=== PATIENT | male | born 1950 | race Caucasian/White ===

== ENCOUNTER 2020-08-28 10:02 | Outpatient (CLI) | payer MEDICARE ==
[~2020-08-28 10:02] MED LIST: Iopamidol 370 76% 100 ML VIAL ONE
== END 2020-08-28 10:03 | disposition home or self-care (01) ==
LOC: CT 10:02
PROVIDERS: ATTEND Urology
DX: C61 Malignant neoplasm of prostate (principal); J98.4 Other disorders of lung; N28.1 Cyst of kidney, acquired; M43.17 Spondylolisthesis, lumbosacral region; R93.7 Abnormal findings on diagnostic imaging of other parts of musculoskeletal system
CPT/HCPCS: 73610; 74178; 78306; 82565; A9503; Q9967

== ENCOUNTER 2020-12-28 10:55 | Outpatient (CLI) | payer MEDICARE | END 2020-12-28 10:56 | disposition home or self-care (01) | LOC: LABBT 10:55 | PROVIDERS: ATTEND Urology | DX: Z01.818 Encounter for other preprocedural examination (principal); C61 Malignant neoplasm of prostate; N40.1 Benign prostatic hyperplasia with lower urinary tract symptoms; N52.01 Erectile dysfunction due to arterial insufficiency; Z20.822 Contact with and (suspected) exposure to COVID-19 | CPT/HCPCS: 71046; 80048; 81001; 85027; 85610; 85730; 86850; 86900; 86901; 87086; 93005; U0003; U0005; 93010 ==

== ENCOUNTER 2020-12-31 05:43 | Inpatient (IN) | payer MEDICARE ==
[2020-12-28 12:06] LABS: Hemoglobin 15.6 g/dL (13.5-17.5); Mean Corpuscular HGB CONC 33.6 g/dL (32.0-36.0); Mean Corpuscular Volume 92.2 fl (81.2-95.1); Mean Platelet Volume 10.1 fl (7.4-10.4); Platelet Count 216 10x3/uL (150-450); RBC Distribution Width 13.2 % (11.5-14.5); Red Blood Cell (RBC) Count 5.03 10x6/uL (4.32-5.72); White Blood Cell (WBC) Count 8.6 10x3/uL (3.5-10.5)
[2020-12-28 12:18] LABS: Bilirubin Neg (Negative); Blood, Urine Negative (Negative); Clarity Clear (Clear); Glucose, Urine (Dipstick) Normal (Negative); Ketone, Urine Negative (Negative); Leukocyte Negative (Negative); Nitrite Negative (Negative); Protein, Urine (Dipstick) Negative (Neg-Trace); Urobilinogen Normal mg/dL (Less than 2)
[2020-12-28 12:22] LABS: PTT 26.2 sec (22.0-33.0)
[2020-12-28 12:25] LABS: Anion Gap 14 mmol/L (10-20); BUN (Urea Nitrogen) 20 mg/dL (8.4-25.7); Calc. Creatinine Clearance 0 mL/min (70-130); Calcium 9.9 mg/dL (7.8-10.44); Carbon Dioxide 26 mmol/L (23-31); Chloride 103 mmol/L (98-107); Glucose 108 mg/dL (80-115); Potassium 4.3 mmol/L (3.5-5.1); Sodium 139 mmol/L (136-145)
[2020-12-28 12:31] LABS: Bacteria/HPF None Seen HPF (None Seen); RBC/HPF None Seen HPF (0-3); Squamous Epithelial None Seen HPF (0-3); WBC/HPF None Seen HPF (0-3)
[2020-12-28 21:37] LABS: SARS-CoV-2 PCR by NAA Not Detected (NotDetected)
[~2020-12-31 05:43] MED LIST changes: -Iopamidol 370 76% 100 ML VIAL ONE; +Iopamidol-370 76% 500 ML 1 ML ONE
[2020-12-31] MEDS ORDERED: cefOXitin Sodium/Dextrose 2 GM/50 ML BAG ONE (06:04)
[2020-12-31] MEDS ORDERED: Fentanyl 250 MCG/5 ML VIAL ONE (07:25)
[2020-12-31] MEDS ORDERED: Phenylephrine 10 MG/ML VIAL ONE (07:26)
[2020-12-31] MEDS ORDERED: SUGAMMADEX SODIUM 200 MG/2 ML VIAL ONE (07:26)
[2020-12-31] MEDS ORDERED: Fentanyl 100 MCG/2 ML VIAL ONE ×2 (07:33→13:26)
[2020-12-31] MEDS ORDERED: Midazolam HCl 2 mg/2 ml Vial ONE (07:33)
[2020-12-31] MEDS ORDERED: Sodium Chloride 0.9% 0 ML ONE (08:01)
[2020-12-31] MEDS ORDERED: ceFOXitin 1 GM VIAL ONE ×2 (08:01→11:56)
[2020-12-31] MEDS ORDERED: Gentamicin 80 MG/2 ML VIAL ONE (08:10)
[2020-12-31] MEDS ORDERED: Gentamicin Sulfate 80 MG in Premix Bag 1 BAG IVPB SCH (08:15)
[2020-12-31] MEDS ORDERED: Lidocaine 1.5% w/Epi 1:200K 30 ML VIAL (Epid Use) ONE (08:33)
[2020-12-31] MEDS ORDERED: PHENYLEPHRINE-NS 100 MCG/ML 10 ML SYRINGE ONE (08:33)
[2020-12-31] MEDS ORDERED: Ondansetron PF 4 MG/2 ML Vial ONE (08:33)
[2020-12-31] MEDS ORDERED: PROPOFOL 200 MG/20 ML VIAL ONE (08:33)
[2020-12-31] MEDS ORDERED: Succinylcholine 200 MG/10 ml SYRINGE FS ONE (08:33)
[2020-12-31] MEDS ORDERED: Lidocaine 1% PF 5 ML VIAL ONE (08:33)
[2020-12-31] MEDS ORDERED: Rocuronium Bromide 10 MG/ML (10ML VIAL) ONE (08:33)
[2020-12-31] MEDS ORDERED: Acetaminophen 500 MG TAB PO PRN (09:39)
[2020-12-31] MEDS ORDERED: Naloxone HCl 0.4 mg/ml Vial IVP PRN (09:45)
[2020-12-31] MEDS ORDERED: traMADol HCl 50 MG TAB PO PRN ×2 (09:45)
[2020-12-31] MEDS ORDERED: Bupivacaine 0.25% 10 ML VIAL EPIDURAL PRN (09:45)
[2020-12-31] MEDS ORDERED: HYDROcodone/Acetaminophen 5/325 mg Tablet PO PRN ×2 (09:45)
[2020-12-31] MEDS ORDERED: diphenhydrAMINE 50 MG/ML VIAL IVP PRN (09:45)
[2020-12-31] MEDS ORDERED: Naloxone HCl 0.4 mg/ml Vial IV PRN (09:45)
[2020-12-31] MEDS ORDERED: Hydrocerin (Eucerin) Cream 120 gm Jar TOP PRN (09:45)
[2020-12-31] MEDS ORDERED: Promethazine HCl 25 MG/ML VIAL IM PRN (09:45)
[2020-12-31] MEDS ORDERED: Promethazine HCl 25 MG SUPP PR PRN (09:45)
[2020-12-31] MEDS ORDERED: diphenhydrAMINE 50 MG/ML VIAL IM PRN (09:45)
[2020-12-31] MEDS ORDERED: Zolpidem Tartrate 5 MG TAB PO PRN (09:45)
[2020-12-31] MEDS ORDERED: diphenhydrAMINE 25 MG CAP PO PRN (09:45)
[2020-12-31] MEDS ORDERED: Rocuronium Bromide 50 MG/5 ML VIAL ONE (11:30)
[2020-12-31] MEDS ORDERED: Sodium Chloride 0.9% 20 ML ONE (12:00)
[2020-12-31] MEDS ORDERED: Mag-Al 1200 mg/1200 mg/30 ML UDCUP PO PRN (13:53)
[2020-12-31] MEDS ORDERED: Oxybutynin 5 MG TAB PO PRN (13:53)
[2020-12-31] MEDS ORDERED: hydrALAZINE 20 MG/ML VIAL SLOW IVP PRN (13:53)
[2020-12-31] MEDS ORDERED: cefOXitin 1.5 GM in Sodium Chloride 0.9% 100 ML IVPB SCH (14:00)
[2020-12-31 15:10] LABS: Hemoglobin 14.1 g/dL (14.0-18.0); Mean Corpuscular HGB CONC 34.9 g/dL (32.0-36.0); Mean Corpuscular Volume 94.7 fL (78.0-98.0); Mean Platelet Volume 7.6 fL (7.4-10.4); Platelet Count 200 thou/uL (130-400); RBC Distribution Width 12.4 % (11.5-14.5); Red Blood Cell (RBC) Count 4.27 mill/uL (4.70-6.10); White Blood Cell (WBC) Count 17.8 thou/uL (4.8-10.8)
[2020-12-31 15:19] LABS: Anion Gap 15 mmol/L (10-20); BUN (Urea Nitrogen) 15 mg/dL (8.4-25.7); Calc. Creatinine Clearance 93 mL/min (70-130); Calcium 8.2 mg/dL (7.8-10.44); Carbon Dioxide 24 mmol/L (23-31); Chloride 109 mmol/L (98-107); Glucose 127 mg/dL (80-115); Potassium 4.6 mmol/L (3.5-5.1); Sodium 143 mmol/L (136-145)
[2020-12-31] MEDS: Ondansetron PF 4 MG/2 ML Vial IVP PRN (17:47)
[2020-12-31] MEDS: Sodium Chloride 0.9% 1,000 ML IV SCH ×2 (17:47→19:49)
[2020-12-31] MEDS: Metoprolol Tartrate 100 MG TAB PO SCH (19:49)
[2020-12-31] MEDS: cefOXitin Sodium/Dextrose,Iso 1 GM in Premix Bag 1 BAG IVPB SCH (19:49)
[2020-12-31] MEDS: Docusate 100 MG CAP PO SCH (19:49)
[2020-12-31] MEDS: fentaNYL Citrate/PF 500 MCG, Bupivacaine 10 ML in Sodium Chloride 0.9% 80 ML EPIDURAL SCH (23:33)
[2021-01-01] MEDS: cefOXitin Sodium/Dextrose,Iso 1 GM in Premix Bag 1 BAG IVPB SCH ×2 (03:50→11:55)
[2021-01-01 05:58] LABS: #Monocytes 0.9 thou/uL (0.11-0.59); #Neutrophils 12.3 thou/uL (1.40-6.50); %Basophils 0.1 % (0.0-1.0); %Eosinophils 0.2 % (0.0-10.0); %Monocytes 6.6 % (0.0-10.0); %Neutrophils 86.1 % (42.0-75.0); Hemoglobin 12.6 g/dL (14.0-18.0); Mean Corpuscular HGB CONC 34.2 g/dL (32.0-36.0); Mean Corpuscular Hemoglobin 31.7 pg (27.0-31.0); Mean Corpuscular Volume 92.8 fL (78.0-98.0); Mean Platelet Volume 7.4 fL (7.4-10.4); Platelet Count 195 thou/uL (130-400); RBC Distribution Width 12.5 % (11.5-14.5); Red Blood Cell (RBC) Count 3.98 mill/uL (4.70-6.10); White Blood Cell (WBC) Count 14.3 thou/uL (4.8-10.8)
[2021-01-01 06:27] LABS: Anion Gap 12 mmol/L (10-20); BUN (Urea Nitrogen) 11 mg/dL (8.4-25.7); Calc. Creatinine Clearance 87 mL/min (70-130); Calcium 7.8 mg/dL (7.8-10.44); Carbon Dioxide 25 mmol/L (23-31); Chloride 106 mmol/L (98-107); Glucose 132 mg/dL (80-115); Potassium 4.2 mmol/L (3.5-5.1); Sodium 139 mmol/L (136-145)
[2021-01-01] MEDS: Allopurinol 300 MG TAB PO SCH (08:42)
[2021-01-01] MEDS: Metoprolol Tartrate 100 MG TAB PO SCH ×2 (08:44→20:07)
[2021-01-01] MEDS: Docusate 100 MG CAP PO SCH ×2 (08:45→20:07)
[2021-01-01] MEDS: Ondansetron PF 4 MG/2 ML Vial IVP PRN ×2 (08:46→15:58)
[2021-01-01] MEDS ORDERED: Lisinopril/Hydrochlorothiazide 20 mg/12.5 mg Tablet PO SCH (10:00)
[2021-01-01] MEDS ORDERED: Atorvastatin Calcium 40 MG TAB PO SCH (10:00)
[2021-01-01] MEDS: Sodium Chloride 0.9% 1,000 ML IV SCH ×3 (10:57→20:07)
[2021-01-01] MEDS: fentaNYL Citrate/PF 500 MCG, Bupivacaine 10 ML in Sodium Chloride 0.9% 80 ML EPIDURAL SCH (12:58)
[2021-01-02] MEDS: fentaNYL Citrate/PF 500 MCG, Bupivacaine 10 ML in Sodium Chloride 0.9% 80 ML EPIDURAL SCH ×2 (02:05→17:48)
[2021-01-02] MEDS: Ondansetron PF 4 MG/2 ML Vial IVP PRN ×2 (02:17→07:21)
[2021-01-02 06:58] LABS: #Eosinphils 0.1 thou/uL (0.0-0.7); #Lymphocytes 1.2 thou/uL (1.20-3.40); #Monocytes 1.4 thou/uL (0.11-0.59); #Neutrophils 14.6 thou/uL (1.40-6.50); %Basophils 0.1 % (0.0-1.0); %Eosinophils 0.3 % (0.0-10.0); %Lymphocytes 6.9 % (21.0-51.0); %Monocytes 8.3 % (0.0-10.0); %Neutrophils 84.4 % (42.0-75.0); Hemoglobin 13.4 g/dL (14.0-18.0); Mean Corpuscular HGB CONC 33.5 g/dL (32.0-36.0); Mean Corpuscular Volume 92.5 fL (78.0-98.0); Mean Platelet Volume 7.5 fL (7.4-10.4); Platelet Count 229 thou/uL (130-400); RBC Distribution Width 12.4 % (11.5-14.5); Red Blood Cell (RBC) Count 4.31 mill/uL (4.70-6.10); White Blood Cell (WBC) Count 17.3 thou/uL (4.8-10.8)
[2021-01-02 07:11] LABS: Anion Gap 11 mmol/L (10-20); BUN (Urea Nitrogen) 11 mg/dL (8.4-25.7); Calc. Creatinine Clearance 118 mL/min (70-130); Calcium 8.1 mg/dL (7.8-10.44); Carbon Dioxide 25 mmol/L (23-31); Chloride 104 mmol/L (98-107); Glucose 118 mg/dL (80-115); Potassium 3.8 mmol/L (3.5-5.1); Sodium 136 mmol/L (136-145)
[2021-01-02] MEDS: Allopurinol 300 MG TAB PO SCH (08:52)
[2021-01-02] MEDS: Lisinopril/Hydrochlorothiazide 20 mg/12.5 mg Tablet PO SCH (08:52)
[2021-01-02] MEDS: Atorvastatin Calcium 40 MG TAB PO SCH (08:52)
[2021-01-02] MEDS: Metoprolol Tartrate 100 MG TAB PO SCH ×2 (08:52→20:34)
[2021-01-02] MEDS: Docusate 100 MG CAP PO SCH ×2 (10:49→20:34)
[2021-01-02] MEDS: Sodium Chloride 0.9% 1,000 ML IV SCH ×2 (14:34→18:02)
[2021-01-03] MEDS: Sodium Chloride 0.9% 1,000 ML IV SCH ×3 (02:00→18:42)
[2021-01-03 04:45] LABS: #Eosinphils 0.1 thou/uL (0.0-0.7); #Lymphocytes 1.2 thou/uL (1.20-3.40); #Monocytes 1.2 thou/uL (0.11-0.59); %Basophils 0.1 % (0.0-1.0); %Eosinophils 0.7 % (0.0-10.0); %Monocytes 7.1 % (0.0-10.0); Hemoglobin 12.9 g/dL (14.0-18.0); Mean Corpuscular HGB CONC 32.4 g/dL (32.0-36.0); Mean Corpuscular Hemoglobin 30.1 pg (27.0-31.0); Mean Corpuscular Volume 92.8 fL (78.0-98.0); Mean Platelet Volume 7.4 fL (7.4-10.4); Platelet Count 232 thou/uL (130-400); RBC Distribution Width 12.4 % (11.5-14.5); Red Blood Cell (RBC) Count 4.28 mill/uL (4.70-6.10); White Blood Cell (WBC) Count 16.5 thou/uL (4.8-10.8)
[2021-01-03 05:01] LABS: Anion Gap 11 mmol/L (10-20); BUN (Urea Nitrogen) 15 mg/dL (8.4-25.7); Calc. Creatinine Clearance 118 mL/min (70-130); Calcium 7.9 mg/dL (7.8-10.44); Carbon Dioxide 26 mmol/L (23-31); Chloride 103 mmol/L (98-107); Glucose 106 mg/dL (80-115); Potassium 3.7 mmol/L (3.5-5.1); Sodium 136 mmol/L (136-145)
[2021-01-03] MEDS: Atorvastatin Calcium 40 MG TAB PO SCH (08:27)
[2021-01-03] MEDS: Lisinopril/Hydrochlorothiazide 20 mg/12.5 mg Tablet PO SCH (08:27)
[2021-01-03] MEDS: Metoprolol Tartrate 100 MG TAB PO SCH ×2 (08:28→21:29)
[2021-01-03] MEDS: Allopurinol 300 MG TAB PO SCH (08:28)
[2021-01-03] MEDS: Docusate 100 MG CAP PO SCH ×2 (08:52→21:28)
[2021-01-03] MEDS: fentaNYL Citrate/PF 500 MCG, Bupivacaine 10 ML in Sodium Chloride 0.9% 80 ML EPIDURAL SCH (08:59)
[2021-01-03] MEDS: Ketorolac Tromethamine 30 MG/ML VIAL IVP SCH ×3 (13:00→23:50)
[2021-01-03] MEDS: hydrALAZINE 20 MG/ML VIAL SLOW IVP PRN (16:53)
[2021-01-03] MEDS ORDERED: Chloraseptic Spray 180 ml Bottle PO PRN (18:16)
[2021-01-04] MEDS: hydrALAZINE 20 MG/ML VIAL SLOW IVP PRN (00:09)
[2021-01-04] MEDS: Sodium Chloride 0.9% 1,000 ML IV SCH ×2 (02:16→09:22)
[2021-01-04] MEDS: Ondansetron PF 4 MG/2 ML Vial IVP PRN (03:40)
[2021-01-04] MEDS ORDERED: Sodium Chloride 0.9% 500 ML IV SCH (05:30)
[2021-01-04] MEDS: Metoprolol Tartrate 5 MG/5 ML VIAL IVP PRN ×2 (05:34→05:47)
[2021-01-04] MEDS: Cefepime 2 GM in Sodium Chloride 0.9% 100 ML IVPB SCH ×2 (06:13→20:47)
[2021-01-04] MEDS ORDERED: Diltiazem 125 MG in Sodium Chloride 0.9% 100 ML IVPB SCH ×4 (06:30→17:30)
[2021-01-04 06:34] LABS: #Eosinphils 0.1 thou/uL (0.0-0.7); #Lymphocytes 0.6 thou/uL (1.20-3.40); #Monocytes 1.3 thou/uL (0.11-0.59); #Neutrophils 10.4 thou/uL (1.40-6.50); %Eosinophils 0.5 % (0.0-10.0); %Monocytes 10.4 % (0.0-10.0); %Neutrophils 84.2 % (42.0-75.0); Hemoglobin 13.2 g/dL (14.0-18.0); Mean Corpuscular HGB CONC 33.9 g/dL (32.0-36.0); Mean Corpuscular Hemoglobin 30.9 pg (27.0-31.0); Mean Corpuscular Volume 91.2 fL (78.0-98.0); Mean Platelet Volume 7.7 fL (7.4-10.4); Platelet Count 279 thou/uL (130-400); RBC Distribution Width 12.4 % (11.5-14.5); Red Blood Cell (RBC) Count 4.28 mill/uL (4.70-6.10); White Blood Cell (WBC) Count 12.3 thou/uL (4.8-10.8)
[2021-01-04 06:38] LABS: Anion Gap 14 mmol/L (10-20); BUN (Urea Nitrogen) 20 mg/dL (8.4-25.7); Calc. Creatinine Clearance 123 mL/min (70-130); Calcium 7.6 mg/dL (7.8-10.44); Carbon Dioxide 23 mmol/L (23-31); Chloride 101 mmol/L (98-107); Glucose 93 mg/dL (80-115); Sodium 135 mmol/L (136-145)
[2021-01-04] MEDS: Ketorolac Tromethamine 30 MG/ML VIAL IVP SCH ×4 (06:41→23:29)
[2021-01-04 06:46] LABS: Potassium 2.9 mmol/L (3.5-5.1)
[2021-01-04 06:46] LABS: Lactic Acid 1.1 mmol/L (0.5-2.2)
[2021-01-04] MEDS: VANCOMYCIN 1.25 GM/250 ML BAG 1.25 GM in Premix Bag 1 BAG IVPB SCH ×2 (06:50→17:47)
[2021-01-04 06:51] LABS: ALT (SGPT) 17 U/L (8-55); AST (SGOT) 21 U/L (5-34); Albumin 2.9 g/dL (3.4-4.8); Alkaline Phosphatase 57 U/L (40-110); Bilirubin, Direct 0.4 mg/dL (0.1-0.3); Bilirubin, Total 0.8 mg/dL (0.2-1.2); Protein, Total 5.3 g/dL (5.8-8.1)
[2021-01-04] MEDS ORDERED: Electrolyte Replacement Protocol FS PRN ×2 (07:00→07:30)
[2021-01-04] MEDS ORDERED: Potassium Chloride 20 MEQ TAB PO SCH (07:00)
[2021-01-04] MEDS ORDERED: Electrolyte Replacement Protocol 1 EACH FS SCH (07:15)
[2021-01-04] MEDS ORDERED: Potassium Chloride 40 MEQ in Premix Bag 1 BAG IVPB SCH (07:15)
[2021-01-04] MEDS ORDERED: Potassium Chloride 40 MEQ in Sodium Chloride 0.9% 250 ML 250 ML IVPB SCH ×2 (07:30→08:00)
[2021-01-04 07:52] LABS: Magnesium 1.8 mg/dL (1.6-2.6)
[2021-01-04] MEDS ORDERED: Magnesium 2 GM/50 ML 2 GM in Premix Bag 1 BAG IVPB SCH (08:45)
[2021-01-04] MEDS ORDERED: VANCOMYCIN 1.25 GM/250 ML BAG 1.25 GM in Premix Bag 1 BAG IVPB SCH (09:00)
[2021-01-04] MEDS: Docusate 100 MG CAP PO SCH ×2 (09:21→20:47)
[2021-01-04] MEDS: Allopurinol 300 MG TAB PO SCH (09:21)
[2021-01-04] MEDS: Atorvastatin Calcium 40 MG TAB PO SCH (09:22)
[2021-01-04] MEDS: Lisinopril/Hydrochlorothiazide 20 mg/12.5 mg Tablet PO SCH (09:38)
[2021-01-04] MEDS: Metoprolol Tartrate 100 MG TAB PO SCH ×2 (09:39→20:47)
[2021-01-04] MEDS: Lactated Ringer's 1,000 ML IV SCH (11:31)
[2021-01-04] MEDS: Baclofen 10 MG TAB PO SCH ×2 (14:12→20:47)
[2021-01-04] MEDS: Metoprolol Tartrate 5 MG/5 ML VIAL IVP SCH ×2 (17:48→23:31)
[2021-01-04 22:27] LABS: Bilirubin Negative (Negative); Blood, Urine 2+ (Negative); Clarity Clear (Clear); Glucose, Urine (Dipstick) Normal (Negative); Ketone, Urine 150 mg/dL (Negative); Leukocyte Negative Leu/uL (Negative); Nitrite Negative (Negative); Protein, Urine (Dipstick) 70 mg/dL (Neg-Trace); RBC/HPF Greater than 50 HPF (0-3); Specific Gravity, Urine 1.047 (1.002-1.036); Squamous Epithelial None Seen HPF (0-3); Urobilinogen Normal mg/dL (Less than 2)
[2021-01-04 22:28] LABS: Bacteria/HPF 1+ HPF (None Seen)
[2021-01-04 22:29] LABS: Urine Culture Reflex Yes Yes
[2021-01-05] MEDS: Lactated Ringer's 1,000 ML IV SCH ×2 (01:51→20:42)
[2021-01-05] MEDS: Metoprolol Tartrate 5 MG/5 ML VIAL IVP SCH ×4 (05:19→22:37)
[2021-01-05] MEDS: Ketorolac Tromethamine 30 MG/ML VIAL IVP SCH ×4 (05:19→23:21)
[2021-01-05] MEDS: VANCOMYCIN 1.25 GM/250 ML BAG 1.25 GM in Premix Bag 1 BAG IVPB SCH ×2 (05:20→18:00)
[2021-01-05 05:52] LABS: #Lymphocytes 0.5 thou/uL (1.20-3.40); #Neutrophils 5.4 thou/uL (1.40-6.50); %Basophils 0.3 % (0.0-1.0); %Eosinophils 0.5 % (0.0-10.0); %Lymphocytes 7.7 % (21.0-51.0); %Monocytes 14.6 % (0.0-10.0); %Neutrophils 76.9 % (42.0-75.0); Mean Corpuscular HGB CONC 34.3 g/dL (32.0-36.0); Mean Corpuscular Volume 90.4 fL (78.0-98.0); Mean Platelet Volume 7.1 fL (7.4-10.4); Platelet Count 298 thou/uL (130-400); RBC Distribution Width 12.4 % (11.5-14.5)
[2021-01-05 06:15] LABS: Anion Gap 17 mmol/L (10-20); BUN (Urea Nitrogen) 19 mg/dL (8.4-25.7); Calc. Creatinine Clearance 118 mL/min (70-130); Calcium 7.9 mg/dL (7.8-10.44); Carbon Dioxide 20 mmol/L (23-31); Chloride 99 mmol/L (98-107); Glucose 113 mg/dL (80-115); Sodium 133 mmol/L (136-145)
[2021-01-05] MEDS ORDERED: Potassium Chloride 20 MEQ TAB PO SCH (07:00)
[2021-01-05] MEDS: Metoprolol Tartrate 100 MG TAB PO SCH ×2 (08:43→20:42)
[2021-01-05] MEDS: Cefepime 2 GM in Sodium Chloride 0.9% 100 ML IVPB SCH ×2 (08:44→20:42)
[2021-01-05] MEDS: Atorvastatin Calcium 40 MG TAB PO SCH (08:44)
[2021-01-05] MEDS: Allopurinol 300 MG TAB PO SCH (08:44)
[2021-01-05] MEDS: Docusate 100 MG CAP PO SCH ×2 (08:44→20:42)
[2021-01-05] MEDS: Baclofen 10 MG TAB PO SCH ×3 (08:44→20:42)
[2021-01-05] MEDS: Potassium Chloride 10 MEQ in Premix Bag 1 BAG IVPB SCH ×2 (16:09→19:04)
[2021-01-05] MEDS ORDERED: Diltiazem 125 MG in Sodium Chloride 0.9% 100 ML IVPB SCH ×2 (16:45→20:25)
[2021-01-05 17:57] LABS: Vancomycin, Trough 6.7 ug/mL
[2021-01-06] MEDS: Metoprolol Tartrate 5 MG/5 ML VIAL IVP SCH ×4 (05:30→22:33)
[2021-01-06] MEDS: VANCOMYCIN 1.25 GM/250 ML BAG 1.25 GM in Premix Bag 1 BAG IVPB SCH ×2 (05:30→17:32)
[2021-01-06] MEDS: Ketorolac Tromethamine 30 MG/ML VIAL IVP SCH ×2 (05:30→13:00)
[2021-01-06 05:44] LABS: Hemoglobin 13.6 g/dL (14.0-18.0); Mean Corpuscular HGB CONC 34.2 g/dL (32.0-36.0); Mean Corpuscular Hemoglobin 30.9 pg (27.0-31.0); Mean Corpuscular Volume 90.4 fL (78.0-98.0); Mean Platelet Volume 6.7 fL (7.4-10.4); Platelet Count 279 thou/uL (130-400); RBC Distribution Width 12.3 % (11.5-14.5); Red Blood Cell (RBC) Count 4.41 mill/uL (4.70-6.10); White Blood Cell (WBC) Count 5.7 thou/uL (4.8-10.8)
[2021-01-06 05:56] LABS: Anion Gap 18 mmol/L (10-20); BUN (Urea Nitrogen) 16 mg/dL (8.4-25.7); Calc. Creatinine Clearance 132 mL/min (70-130); Calcium 7.7 mg/dL (7.8-10.44); Carbon Dioxide 21 mmol/L (23-31); Chloride 98 mmol/L (98-107); Glucose 86 mg/dL (80-115); Sodium 134 mmol/L (136-145)
[2021-01-06 06:04] LABS: Potassium 2.6 mmol/L (3.5-5.1)
[2021-01-06] MEDS: Diltiazem 125 MG in Sodium Chloride 0.9% 100 ML IVPB SCH ×3 (06:45→21:35)
[2021-01-06 06:57] LABS: Band 21 % (5-11); Eosinophils 9 % (0-10); Lymphocytes 22 % (21-51); MDiff Complete? YES; Monocytes 13 % (0-10); Neutrophil 35 % (42-75)
[2021-01-06] MEDS ORDERED: Potassium Chloride 20 MEQ TAB PO SCH (07:00)
[2021-01-06 07:57] LABS: Magnesium 2.2 mg/dL (1.6-2.6)
[2021-01-06] MEDS: Potassium Chloride 40 MEQ in Sodium Chloride 0.9% 250 ML 250 ML IVPB SCH ×2 (08:20→13:01)
[2021-01-06] MEDS: Atorvastatin Calcium 40 MG TAB PO SCH (08:22)
[2021-01-06] MEDS: Docusate 100 MG CAP PO SCH ×2 (08:22→21:36)
[2021-01-06] MEDS: Metoprolol Tartrate 100 MG TAB PO SCH ×2 (08:22→21:36)
[2021-01-06] MEDS: Cefepime 2 GM in Sodium Chloride 0.9% 100 ML IVPB SCH ×2 (08:22→21:36)
[2021-01-06] MEDS: Baclofen 10 MG TAB PO SCH ×2 (08:22→16:01)
[2021-01-06] MEDS: Allopurinol 300 MG TAB PO SCH (08:22)
[2021-01-06] MEDS ORDERED: Metoclopramide HCl 10 MG/2 ML VIAL IVP SCH (14:45)
[2021-01-06 15:11] LABS: Magnesium 2.1 mg/dL (1.6-2.6)
[2021-01-06] MEDS: Lactated Ringer's 1,000 ML IV SCH (16:13)
[2021-01-06 17:25] LABS: Potassium 3.1 mmol/L (3.5-5.1)
[2021-01-06] MEDS ORDERED: Sodium Chloride 0.9% 500 ML IV SCH (19:30)
[2021-01-06] MEDS ORDERED: Potassium Chloride 40 MEQ in Sodium Chloride 0.9% 250 ML 250 ML IVPB SCH (21:30)
[2021-01-06] MEDS: Enoxaparin Sodium 80 MG/0.8 ML SYRINGE SC SCH (21:35)
[2021-01-06] MEDS: Metoclopramide HCl 10 MG/2 ML VIAL IVP SCH (21:36)
[2021-01-07] MEDS: Diltiazem 125 MG in Sodium Chloride 0.9% 100 ML IVPB SCH ×2 (00:26→08:47)
[2021-01-07] MEDS ORDERED: Metoprolol Tartrate 5 MG/5 ML VIAL IVP SCH (03:00)
[2021-01-07 05:08] LABS: Anion Gap 16 mmol/L (10-20); BUN (Urea Nitrogen) 14 mg/dL (8.4-25.7); Calc. Creatinine Clearance 140 mL/min (70-130); Calcium 7.7 mg/dL (7.8-10.44); Carbon Dioxide 22 mmol/L (23-31); Chloride 100 mmol/L (98-107); Glucose 81 mg/dL (80-115); Potassium 3.3 mmol/L (3.5-5.1); Sodium 135 mmol/L (136-145)
[2021-01-07] MEDS: Metoprolol Tartrate 5 MG/5 ML VIAL IVP SCH ×4 (05:33→23:24)
[2021-01-07] MEDS: Metoclopramide HCl 10 MG/2 ML VIAL IVP SCH ×3 (05:33→22:29)
[2021-01-07] MEDS: VANCOMYCIN 1.25 GM/250 ML BAG 1.25 GM in Premix Bag 1 BAG IVPB SCH ×2 (05:33→17:33)
[2021-01-07] MEDS ORDERED: Potassium Chloride 20 MEQ TAB PO SCH (06:30)
[2021-01-07] MEDS: Cefepime 2 GM in Sodium Chloride 0.9% 100 ML IVPB SCH ×2 (08:45→22:29)
[2021-01-07] MEDS: Enoxaparin Sodium 80 MG/0.8 ML SYRINGE SC SCH ×2 (08:46→22:28)
[2021-01-07] MEDS: Docusate 100 MG CAP PO SCH ×2 (09:00→22:32)
[2021-01-07] MEDS: Allopurinol 300 MG TAB PO SCH (09:00)
[2021-01-07] MEDS: Atorvastatin Calcium 40 MG TAB PO SCH (09:00)
[2021-01-07] MEDS: Metoprolol Tartrate 100 MG TAB PO SCH ×2 (09:00→22:33)
[2021-01-07] MEDS: Lactated Ringer's 1,000 ML IV SCH (11:00)
[2021-01-08 05:14] LABS: Anion Gap 14 mmol/L (10-20); BUN (Urea Nitrogen) 10 mg/dL (8.4-25.7); Calc. Creatinine Clearance 132 mL/min (70-130); Calcium 7.7 mg/dL (7.8-10.44); Carbon Dioxide 22 mmol/L (23-31); Chloride 101 mmol/L (98-107); Glucose 102 mg/dL (80-115); Potassium 3.2 mmol/L (3.5-5.1); Sodium 134 mmol/L (136-145)
[2021-01-08] MEDS: Metoclopramide HCl 10 MG/2 ML VIAL IVP SCH ×3 (05:35→22:21)
[2021-01-08] MEDS: Metoprolol Tartrate 5 MG/5 ML VIAL IVP SCH ×4 (05:35→22:22)
[2021-01-08] MEDS: VANCOMYCIN 1.25 GM/250 ML BAG 1.25 GM in Premix Bag 1 BAG IVPB SCH (05:35)
[2021-01-08] MEDS: Lactated Ringer's 1,000 ML IV SCH (05:44)
[2021-01-08] MEDS ORDERED: Potassium Chloride 20 MEQ TAB PO SCH (07:00)
[2021-01-08] MEDS: Docusate 100 MG CAP PO SCH ×2 (08:52→19:52)
[2021-01-08] MEDS: Atorvastatin Calcium 40 MG TAB PO SCH (08:52)
[2021-01-08] MEDS: Metoprolol Tartrate 100 MG TAB PO SCH ×2 (08:52→19:51)
[2021-01-08] MEDS: Allopurinol 300 MG TAB PO SCH (08:52)
[2021-01-08] MEDS: Enoxaparin Sodium 80 MG/0.8 ML SYRINGE SC SCH (08:53)
[2021-01-08] MEDS: Cefepime 2 GM in Sodium Chloride 0.9% 100 ML IVPB SCH (08:54)
[2021-01-08 09:37] VITALS: BMI 30.9
[2021-01-08] MEDS: Apixaban 5 MG TAB PO SCH (19:50)
[2021-01-08] MEDS ORDERED: traMADol HCl 50 MG TAB PO PRN (23:08)
[2021-01-09] MEDS ORDERED: Metoprolol Tartrate 5 MG/5 ML VIAL IVP SCH (02:00)
[2021-01-09] MEDS: Lactated Ringer's 1,000 ML IV SCH ×2 (02:56→22:52)
[2021-01-09] MEDS: Metoprolol Tartrate 5 MG/5 ML VIAL IVP SCH ×4 (03:45→22:52)
[2021-01-09 04:44] LABS: Platelet Count 477 thou/uL (130-400)
[2021-01-09 05:04] LABS: Calc. Creatinine Clearance 130 mL/min (70-130)
[2021-01-09] MEDS: Metoclopramide HCl 10 MG/2 ML VIAL IVP SCH ×3 (05:55→22:07)
[2021-01-09 08:29] LABS: Anion Gap 12 mmol/L (10-20); BUN (Urea Nitrogen) 9 mg/dL (8.4-25.7); Calc. Creatinine Clearance 130 mL/min (70-130); Calcium 8.1 mg/dL (7.8-10.44); Carbon Dioxide 24 mmol/L (23-31); Chloride 100 mmol/L (98-107); Glucose 105 mg/dL (80-115); Potassium 3.4 mmol/L (3.5-5.1); Sodium 133 mmol/L (136-145)
[2021-01-09] MEDS ORDERED: Potassium Chloride 20 MEQ TAB PO SCH (09:00)
[2021-01-09] MEDS: Allopurinol 300 MG TAB PO SCH (09:29)
[2021-01-09] MEDS: Atorvastatin Calcium 40 MG TAB PO SCH (09:29)
[2021-01-09] MEDS: Apixaban 5 MG TAB PO SCH ×2 (09:29→20:44)
[2021-01-09] MEDS: Metoprolol Tartrate 100 MG TAB PO SCH ×2 (09:30→20:44)
[2021-01-09] MEDS: Docusate 100 MG CAP PO SCH ×2 (09:30→20:45)
[2021-01-09] MEDS ORDERED: Lisinopril 10 MG TAB PO SCH (13:45)
[2021-01-09] MEDS: Dronedarone HCl 400 MG TAB PO SCH (16:00)
[2021-01-10] MEDS: Metoprolol Tartrate 5 MG/5 ML VIAL IVP SCH (04:39)
[2021-01-10] MEDS: Metoclopramide HCl 10 MG/2 ML VIAL IVP SCH (06:26)
[2021-01-10 07:33] LABS: Anion Gap 13 mmol/L (10-20); BUN (Urea Nitrogen) 8 mg/dL (8.4-25.7); Calc. Creatinine Clearance 119 mL/min (70-130); Calcium 7.9 mg/dL (7.8-10.44); Carbon Dioxide 25 mmol/L (23-31); Chloride 104 mmol/L (98-107); Glucose 121 mg/dL (80-115); Magnesium 1.7 mg/dL (1.6-2.6); Potassium 3.5 mmol/L (3.5-5.1); Sodium 138 mmol/L (136-145)
[2021-01-10] MEDS ORDERED: Magnesium 2 GM/50 ML 2 GM in Premix Bag 1 BAG IVPB SCH (08:00)
[2021-01-10] MEDS ORDERED: Potassium Chloride 20 MEQ TAB PO SCH (08:00)
[2021-01-10] MEDS: Dronedarone HCl 400 MG TAB PO SCH (08:37)
[2021-01-10] MEDS: Allopurinol 300 MG TAB PO SCH (08:37)
[2021-01-10] MEDS: Docusate 100 MG CAP PO SCH (08:38)
[2021-01-10] MEDS: Apixaban 5 MG TAB PO SCH (08:38)
[2021-01-10] MEDS: Atorvastatin Calcium 40 MG TAB PO SCH (08:38)
[2021-01-10] MEDS: Metoprolol Tartrate 100 MG TAB PO SCH (08:38)
[2021-01-10] MEDS ORDERED: Lisinopril 10 MG TAB PO SCH (09:00)
[2021-01-10 11:37] VITALS: BP 99/62; TEMP 98
== END 2021-01-10 15:00 | disposition home or self-care (01) | DRG 707 ==
LOC: SDC 05:43 → SURG B 15:45 → 2SW 01-04 06:24 → 2NO 01-06 18:29
PROVIDERS: ADMIT Urology; ATTEND Internal Medicine
PROC: 0VT00ZZ Resection of Prostate, Open Approach (ICD-10-PCS; principal; 2020-12-31)
PROC: 07BC0ZZ Excision of Pelvis Lymphatic, Open Approach (ICD-10-PCS; 2020-12-31)
PROC: 0VB30ZZ Excision of Bilateral Seminal Vesicles, Open Approach (ICD-10-PCS; 2020-12-31)
PROC: 0TJB8ZZ Inspection of Bladder, Via Natural or Artificial Opening Endoscopic (ICD-10-PCS; 2020-12-31)
PROC: 0VBQ0ZZ Excision of Bilateral Vas Deferens, Open Approach (ICD-10-PCS; 2020-12-31)
PROC: 30233N1 Transfusion of Nonautologous Red Blood Cells into Peripheral Vein, Percutaneous Approach (ICD-10-PCS; 2020-12-31)
PROC: 0D9670Z Drainage of Stomach with Drainage Device, Via Natural or Artificial Opening (ICD-10-PCS; 2021-01-03)
DX: C61 Malignant neoplasm of prostate (principal); K56.7 Ileus, unspecified; N40.1 Benign prostatic hyperplasia with lower urinary tract symptoms; N52.01 Erectile dysfunction due to arterial insufficiency; Z20.822 Contact with and (suspected) exposure to COVID-19; I10 Essential (primary) hypertension; I08.1 Rheumatic disorders of both mitral and tricuspid valves; E78.00 Pure hypercholesterolemia, unspecified; K21.9 Gastro-esophageal reflux disease without esophagitis; M10.9 Gout, unspecified; F17.220 Nicotine dependence, chewing tobacco, uncomplicated; E78.5 Hyperlipidemia, unspecified; E87.6 Hypokalemia; I48.0 Paroxysmal atrial fibrillation; E83.42 Hypomagnesemia; Z79.899 Other long term (current) drug therapy; Z79.1 Long term (current) use of non-steroidal anti-inflammatories (NSAID)
CPT/HCPCS: 36415; 36430; 71045; 71046; 71275; 74018; 80048; 80076; 80202; 81001; 82565; 82570; 83605; 83735; 84443; 85014; 85018; 85025; 85027; 85049; 85610; 85730; 86850; 86900; 86901; 87040; 87081; 87086; 88305; 88307; 88309; 93005; 93010; 93306; J0360; J0692; J0694; J1580; J1650; J1885; J2001; J2250; J2370; J2405; J2704; J2765; J3010; J3370; J3475; J3480; J3490; J7050; J7120; P9016; Q9967; U0003; U0005

== ENCOUNTER 2021-01-18 10:24 | Outpatient (CLI) | payer MEDICARE | END 2021-01-18 10:25 | disposition home or self-care (01) | LOC: RAD 10:24 | PROVIDERS: ATTEND Urology | DX: N40.1 Benign prostatic hyperplasia with lower urinary tract symptoms (principal); Z97.8 Presence of other specified devices; Z96.0 Presence of urogenital implants | CPT/HCPCS: 51600; 74430; Q9967 ==

== ENCOUNTER 2021-01-25 08:22 | Outpatient (CLI) | payer MEDICARE ==
[2021-01-25] MEDS ORDERED: Iopamidol-370 76% 500 ML 1 ML ONE (13:53)
== END 2021-01-25 08:23 | disposition home or self-care (01) ==
LOC: RAD 08:22
PROVIDERS: ATTEND Urology
DX: C61 Malignant neoplasm of prostate (principal); T85.638A Leakage of other specified internal prosthetic devices, implants and grafts, initial encounter
CPT/HCPCS: 51600; 74430; Q9967

== ENCOUNTER 2021-04-07 11:04 | Outpatient (CLI) | payer MEDICARE ==
[2021-04-07 11:55] LABS: Hemoglobin 16.2 g/dL (13.5-17.5); Mean Corpuscular Hemoglobin 28.8 pg (27.0-33.0); Mean Corpuscular Volume 90.2 fl (81.2-95.1); Mean Platelet Volume 9.8 fl (7.4-10.4); Platelet Count 234 10x3/uL (150-450); RBC Distribution Width 13.5 % (11.5-14.5); Red Blood Cell (RBC) Count 5.62 10x6/uL (4.32-5.72); White Blood Cell (WBC) Count 9.9 10x3/uL (3.5-10.5)
[2021-04-07 12:10] LABS: Anion Gap 14 mmol/L (10-20); BUN (Urea Nitrogen) 17 mg/dL (8.4-25.7); Calc. Creatinine Clearance 0 mL/min (70-130); Calcium 9.7 mg/dL (7.8-10.44); Carbon Dioxide 28 mmol/L (23-31); Chloride 100 mmol/L (98-107); Glucose 105 mg/dL (80-115); Potassium 4.4 mmol/L (3.5-5.1); Sodium 138 mmol/L (136-145)
[2021-04-07 12:30] LABS: INR-International Normal Ratio 1.1; PTT 30.5 sec (22.0-33.0); Prothrombin Time 11.7 sec (9.5-12.1)
[2021-04-07 21:34] LABS: SARS-CoV-2 PCR by NAA Not Detected (NotDetected)
== END 2021-04-07 11:05 | disposition home or self-care (01) ==
LOC: LABBT 11:04
PROVIDERS: ATTEND Internal Medicine Cardiovascular Disease
DX: Z01.812 Encounter for preprocedural laboratory examination (principal); I48.0 Paroxysmal atrial fibrillation; Z20.822 Contact with and (suspected) exposure to COVID-19
CPT/HCPCS: 80048; 85027; 85610; 85730; U0003; U0005

== ENCOUNTER → 2021-04-12 | Day surgery (SDC) | payer MEDICARE ==
[2021-04-02 15:35] VITALS: BMI 29.8
[~2021-04-12] MED LIST changes: +Acetaminophen 325 MG TAB ONE; +Dexamethasone 20 MG/5 ML VIAL ONE; +Fentanyl 100 MCG/2 ML VIAL ONE; +Glycopyrrolate 0.2 MG/ML 5 ML SYRINGE ONE; +Heparin 10,000 UNITS/ 10 ML VIAL ONE; +Heparin 25,000 units/D5W 500 ML ONE; -Iopamidol-370 76% 500 ML 1 ML ONE; +Isoproterenol 0.2 MG/1 ML AMP ONE; +Lidocaine 1% PF 5 ML VIAL ONE; +Midazolam HCl 2 mg/2 ml Vial ONE; +Ondansetron PF 4 MG/2 ML Vial ONE; +PHENYLEPHRINE-NS 100 MCG/ML 10 ML SYRINGE ONE; +PROPOFOL 200 MG/20 ML VIAL ONE; +Protamine Sulfate 50 MG/5 ML VIAL ONE; +Rocuronium Bromide 10 MG/ML (10ML VIAL) ONE; +Vecuronium 10 MG VIAL ONE
== END ==
LOC: CCL 05:45
PROVIDERS: ATTEND Internal Medicine Cardiovascular Disease
PROC: B244ZZZ Ultrasonography of Right Heart (ICD-10-PCS; principal; 2021-04-12)
PROC: 02583ZZ Destruction of Conduction Mechanism, Percutaneous Approach (ICD-10-PCS; 2021-04-12)
PROC: 02K83ZZ Map Conduction Mechanism, Percutaneous Approach (ICD-10-PCS; 2021-04-12)
PROC: 4A023FZ Measurement of Cardiac Rhythm, Percutaneous Approach (ICD-10-PCS; 2021-04-12)
PROC: 4A0234Z Measurement of Cardiac Electrical Activity, Percutaneous Approach (ICD-10-PCS; 2021-04-12)
DX: I48.0 Paroxysmal atrial fibrillation (principal); I48.92 Unspecified atrial flutter; I11.9 Hypertensive heart disease without heart failure; K21.9 Gastro-esophageal reflux disease without esophagitis; M10.9 Gout, unspecified; E78.5 Hyperlipidemia, unspecified; Z87.891 Personal history of nicotine dependence; Z79.01 Long term (current) use of anticoagulants; Z79.899 Other long term (current) drug therapy
CPT/HCPCS: 85347; 93005; 93613; 93622; 93623; 93655; 93656; 93657; 93662; C1732; C1759; C1776; J1100; J1644; J2250; J2405; J2704; J2720; J3010

== ENCOUNTER 2022-10-13 05:41 | Inpatient (IN) | payer MEDICARE ==
[2022-10-13] MEDS ORDERED: Heparin 5,000 UNITS/ML VIAL ONE (06:20)
[2022-10-13] MEDS ORDERED: Protamine Sulfate 50 MG/5 ML VIAL ONE (06:20)
[2022-10-13] MEDS ORDERED: Bupivacaine HCl 0.5%/Epinephrine 1:200,000/PF 30 ml Vial ONE (06:21)
[2022-10-13] MEDS ORDERED: Dexmedetomidine 200 MCG/2 ML VIAL ONE (06:43)
[2022-10-13] MEDS ORDERED: fentaNYL PF 100 MCG/2 ML SYRINGE ONE (06:43)
[2022-10-13] MEDS ORDERED: Norepinephrine 4 MG/4 ML VIAL ONE (06:43)
[2022-10-13 07:12] LABS: #Basophils 0.1 thou/uL (0.0-0.2); #Eosinphils 0.4 thou/uL (0.0-0.7); #Monocytes 0.7 thou/uL (0.11-0.59); #Neutrophils 5.1 thou/uL (1.40-6.50); %Basophils 0.7 % (0.0-1.0); %Eosinophils 5.9 % (0.0-10.0); %Lymphocytes 11.5 % (21.0-51.0); %Monocytes 10.1 % (0.0-10.0); %Neutrophils 70.4 % (42.0-75.0); Hemoglobin 15.7 g/dL (14.0-18.0); Mean Corpuscular HGB CONC 33.8 g/dL (32.0-36.0); Mean Corpuscular Volume 91.9 fl (78.0-98.0); Mean Platelet Volume 9.5 fL (7.4-10.4); Platelet Count 170 10x3/uL (130-400); RBC Distribution Width 13.7 % (11.5-14.5); Red Blood Cell (RBC) Count 5.06 mill/uL (4.70-6.10); White Blood Cell (WBC) Count 7.2 10x3/uL (4.8-10.8)
[2022-10-13] MEDS ORDERED: Ondansetron HCl/PF 4 MG/2 ML Vial IVP PRN (07:21)
[2022-10-13] MEDS ORDERED: Promethazine HCl 25 MG/ML VIAL IM PRN ×2 (07:21→09:14)
[2022-10-13] MEDS ORDERED: Sodium Chloride 0.9% 100 ML ONE (07:25)
[2022-10-13] MEDS ORDERED: CEFAZOLIN 2 GM VIAL ONE (07:25)
[2022-10-13 07:35] LABS: Anion Gap 17 mmol/L (10-20); BUN (Urea Nitrogen) 29 mg/dL (8.4-25.7); Calc. Creatinine Clearance 84 mL/min (70-130); Calcium 9.7 mg/dL (7.8-10.44); Carbon Dioxide 22 mmol/L (23-31); Chloride 103 mmol/L (98-107); Estimated GFR 74; Glucose 106 mg/dL (83-110); Potassium 4.3 mmol/L (3.5-5.1); Sodium 138 mmol/L (136-145)
[2022-10-13] MEDS ORDERED: NEOSTIGMINE 3 MG/3 ML SYR 3 MG/3 ML SYRINGE ONE (07:40)
[2022-10-13] MEDS ORDERED: Ondansetron PF 4 MG/2 ML Vial ONE (07:40)
[2022-10-13] MEDS ORDERED: Glycopyrrolate 0.2 MG/ML 5 ML SYRINGE ONE (07:40)
[2022-10-13] MEDS ORDERED: PROPOFOL 200 MG/20 ML VIAL ONE (07:40)
[2022-10-13] MEDS ORDERED: Rocuronium Bromide 10 MG/ML (10ML VIAL) ONE (07:40)
[2022-10-13] MEDS ORDERED: PHENYLEPHRINE-NS 100 MCG/ML 10 ML SYRINGE ONE (07:40)
[2022-10-13] MEDS ORDERED: Ondansetron PF 4 MG/2 ML Vial IVP PRN (09:14)
[2022-10-13] MEDS ORDERED: fentaNYL 50 mcg/mL 1 mL Vial SLOW IVP PRN ×2 (09:14)
[2022-10-13] MEDS ORDERED: Phenylephrine 40 MG in Sodium Chloride 0.9% 250 ML 246 ML IVPB PRN (09:14)
[2022-10-13] MEDS ORDERED: HYDROcodone/Acetaminophen 5/325 mg Tablet PO PRN (09:14)
[2022-10-13] MEDS ORDERED: Ipratropium/Albuterol 3 ML NEB NEB PRN (09:14)
[2022-10-13] MEDS ORDERED: Acetaminophen 325 MG TAB PO PRN (09:14)
[2022-10-13] MEDS ORDERED: niCARdipine 25 MG in Sodium Chloride 0.9% 250 ML 250 ML IVPB PRN (09:14)
[2022-10-13 11:26] VITALS: BMI 31.8
[2022-10-13] MEDS: Sodium Chloride 0.9% 1,000 ML IV SCH ×2 (11:48→20:54)
[2022-10-13] MEDS: CEFAZOLIN 2 GM in Sodium Chloride 0.9% 100 ML IVPB SCH ×2 (15:50→23:53)
[2022-10-13] MEDS: HYDROcodone/Acetaminophen 5/325 mg Tablet PO PRN ×2 (15:58→20:56)
[2022-10-13] MEDS: Lisinopril/Hydrochlorothiazide 20 mg/12.5 mg Tablet PO SCH (20:53)
[2022-10-13] MEDS: Metoprolol Tartrate 100 MG TAB PO SCH (20:53)
[2022-10-13] MEDS ORDERED: Atorvastatin Calcium 10 MG TAB PO SCH (21:00)
[2022-10-14] MEDS: Sodium Chloride 0.9% 1,000 ML IV SCH (01:10)
[2022-10-14] MEDS: HYDROcodone/Acetaminophen 5/325 mg Tablet PO PRN (03:38)
[2022-10-14] MEDS: Lisinopril/Hydrochlorothiazide 20 mg/12.5 mg Tablet PO SCH (07:58)
[2022-10-14 07:59] VITALS: BP 139/76
[2022-10-14] MEDS: CEFAZOLIN 2 GM in Sodium Chloride 0.9% 100 ML IVPB SCH (07:59)
[2022-10-14] MEDS: Metoprolol Tartrate 100 MG TAB PO SCH (07:59)
[2022-10-14 08:32] VITALS: TEMP 98.5
[2022-10-14] MEDS ORDERED: Allopurinol 300 MG TAB PO SCH (09:00)
[2022-10-14] MEDS ORDERED: Aspirin Chewable 81 MG TAB PO SCH (09:00)
[2022-10-14] MEDS ORDERED: Meloxicam 15 MG TAB PO SCH (09:00)
== END 2022-10-14 10:09 | disposition home or self-care (01) | DRG 39 ==
LOC: SURG A 05:41 → CCU 11:45
PROVIDERS: ADMIT Thoracic Surgery (Cardiothoracic Vascular Surgery); ATTEND Thoracic Surgery (Cardiothoracic Vascular Surgery)
PROC: 03CK0ZZ Extirpation of Matter from Right Internal Carotid Artery, Open Approach (ICD-10-PCS; principal; 2022-10-13)
PROC: 03UK0KZ Supplement Right Internal Carotid Artery with Nonautologous Tissue Substitute, Open Approach (ICD-10-PCS; 2022-10-13)
PROC: 3E033XZ Introduction of Vasopressor into Peripheral Vein, Percutaneous Approach (ICD-10-PCS; 2022-10-13)
DX: I65.21 Occlusion and stenosis of right carotid artery (principal); I10 Essential (primary) hypertension; I48.0 Paroxysmal atrial fibrillation; E78.5 Hyperlipidemia, unspecified; K21.9 Gastro-esophageal reflux disease without esophagitis; C61 Malignant neoplasm of prostate; Z98.890 Other specified postprocedural states; Z90.79 Acquired absence of other genital organ(s); Z82.49 Family history of ischemic heart disease and other diseases of the circulatory system; Z79.82 Long term (current) use of aspirin; Z79.899 Other long term (current) drug therapy; Z87.891 Personal history of nicotine dependence
CPT/HCPCS: 70498; 80048; 85025; 93005; 93010; C1768; J1642; J1644; J2405; J2704; J2720; J3490; J7050; Q9967

== ENCOUNTER 2024-05-06 08:41 | Outpatient (CLI) | payer MEDICARE | END 2024-05-06 08:42 | disposition home or self-care (01) | LOC: BICMRI 08:41 | PROVIDERS: ATTEND Orthopaedic Surgery | DX: M75.102 Unspecified rotator cuff tear or rupture of left shoulder, not specified as traumatic (principal); M75.122 Complete rotator cuff tear or rupture of left shoulder, not specified as traumatic; S46.012A Strain of muscle(s) and tendon(s) of the rotator cuff of left shoulder, initial encounter; M62.512 Muscle wasting and atrophy, not elsewhere classified, left shoulder; M25.812 Other specified joint disorders, left shoulder; S43.402A Unspecified sprain of left shoulder joint, initial encounter; S46.212A Strain of muscle, fascia and tendon of other parts of biceps, left arm, initial encounter ==